=== PATIENT | female | born 1995 | race Two or more races ===

== ENCOUNTER 2019-03-28 18:33 | Emergency (ER) | payer MEDICAID ==
[~2019-03-28] VITALS: Ht 154.9 cm; Wt 59.4 kg
[2019-03-28 19:04] LABS: Urine Bacteria NONE SEEN /hpf (None Seen); Urine Blood Negative /uL (Negative); Urine WBC 1 /hpf (0 - 5)
[2019-03-28 22:00] VITALS: BP 98/63
== END 2019-03-28 23:06 | disposition home or self-care (01) ==
LOC: ER 18:33
DX: R10.9 Unspecified abdominal pain (principal); F12.10 Cannabis abuse, uncomplicated; V49.49XA Driver injured in collision with other motor vehicles in traffic accident, initial encounter; Y93.89 Activity, other specified; Y99.8 Other external cause status; Y92.410 Unspecified street and highway as the place of occurrence of the external cause
CPT/HCPCS: 36415; 74176; 81001; 84702